=== PATIENT | male | born 1975 | race Caucasian/White ===

== ENCOUNTER 2023-07-19 18:13 | Emergency (ER) | payer OTHER, SELFPAY ==
--- NOTE | ~2023-07-19 | XR_ITS ---
XR chest 2V DATE: 07/19/2023 18:43 INDICATION: Cough for 3 days. Smoker. TECHNIQUE: 2 views COMPARISON: None FINDINGS: Normal heart size. No hilar or mediastinal enlargement is evident. Mild aortic unfolding. No pulmonary infiltrate or consolidation, pleural effusion or pulmonary vascular congestion or pneumo thorax is detected. Degenerative spurring of the thoracic spine. IMPRESSION: No active cardiopulmonary disease Reviewed, dictated and finalized at location A.
--- NOTE | 2023-07-19 18:20 | ED.URI ---
HPI - URI/Sore Throat General Chief Complaint: Upper Respiratory Infection Stated Complaint: cough Time Seen by Provider: 07/19/23 18:20 Source: patient Mode of arrival: ambulatory Limitations: no limitations History of Present Illness HPI Narrative: Patient is a 39-year-old male who presents with 3 days of chest congestion and cough. Patient has taken NyQuil but nothing during the day. Denies taking any allergy medicine or cough medicine. Patient denies any sick contacts. Denies any fever, chills, nausea, vomiting, diarrhea having ear pain, sore throat. Patient does smoke a pack cigarettes a week. Any history of asthma, COPD, bronchitis, pneumonia. Related Data Allergies Allergy/AdvReac Type Severity Reaction Status Date / Time No Known Allergies Allergy Verified 07/19/23 18:30 Review of Systems Review of Systems: All systems reviewed & are unremarkable except as noted in HPI and below Constitutional: Constitutional: Denies body ache(s), Denies chills, Denies fatigue, Denies fever(s), Denies headache(s), Denies malaise and Denies weakness Eyes: Eyes: Denies blurry vision, Denies itchy eyes and Denies loss of vision ENT: Denies otalgia, Denies headache(s), Denies nasal congestion, Denies sinus pain and Denies sore throat Cardiovascular: Cardiovascular: Denies chest pain, Denies irregular heart rhythm and Denies dyspnea Respiratory: Respiratory: Reports chest congestion, Reports cough and Denies dyspnea Gastrointestinal: Gastrointestinal: Denies abdominal pain, Denies diarrhea, Denies nausea and Denies vomiting Musculoskeletal: Musculoskeletal: Denies back pain, Denies myalgias and Denies arthralgias Integumentary/Breasts: Skin/Breast: Denies pruritus and Denies rash Neurologic: Denies headache(s), Denies loss of vision and Denies weakness Psychiatric: Psychiatric: Reports no additional psychiatric complaints Endocrine: Endocrine: Denies fatigue Allergic/Immunologic: Allergic/Immunologic: Denies itchy eyes PMFSH Comments At time of signature, agree with nursing past medical, surgical, social and family history. There is no relevant family history pertinent to the presenting complaint. Exam Const: General: cooperative, healthy appearing, comfortable, no acute distress and well nourished Nutritional Appearance: well nourished Orientation/consciousness: patient oriented x3 Limitations: no limitations HENMT: Head: normal to inspection, normocephalic and atraumatic Ears: hearing grossly normal bilaterally, external ears normal, TM's normal bilaterally, EAC's normal and no periauricular adenopathy Face/Nose/Sinus: Normal external nose present, Abnormal mucous membranes and turbinates present erythematous bilateral and diffuse, normal facial exam, sinuses nontender and face symmetric Face and sinus: normal facial exam, sinuses nontender and face symmetric Mouth: Yes Normal oral and palatal mucosa present, Yes lip normal, Yes tongue normal, Yes Normal salivary glands and ducts present, Yes oropharynx normal and Yes moist mucous membranes Teeth and gingiva: dentition normal Throat: posterior oropharynx normal, tonsils normal and uvula midline Eyes: General: appearance normal, both eyes and all related structures Alignment and Position: alignment normal and position normal Periorbital: periorbital findings normal Eyelids: eyelids normal Pupils: Equal, round and reactive pupils present Neck: Neck: normal visual inspection, full ROM, no lymphadenopathy and supple Chest: Chest palpation & inspection: normal inspection of the chest and normal palpation of entire chest wall Resp: Effort & Inspection: normal respiratory effort and able to speak in complete sentences Auscultation: no crackles, no rales, rhonchi throughout and no wheezes Cardio: Rate: tachycardic Rhythm: regular rhythm Heart sounds: S1 normal heart sound present and S2 normal heart sound present GI: Inspection: normal to inspection Skin: General sk
[2023-07-19 18:29] VITALS: BP 161/91; PULSE 101; RESP 20; TEMP 36.2; O2SAT 97
[2023-07-19 18:30] VITALS: BP 161/91; PULSE 101; RESP 20; TEMP 36.2; O2SAT 97
== END 2023-07-19 19:05 | disposition home or self-care (01) ==
PROVIDERS: Emergency Provider Nurse Practitioner Family
DX: J20.9 Acute bronchitis, unspecified (principal); F17.210 Nicotine dependence, cigarettes, uncomplicated
CPT/HCPCS: 71046; 99213; G0463

== ENCOUNTER 2024-06-13 00:39 | Emergency (ER) | payer OTHER, SELFPAY ==
--- NOTE | ~2024-06-13 | XR_ITS ---
EXAMINATION: XR chest 2V DATE: 06/13/2024 01:58 INDICATION: Shortness of breath. TECHNIQUE: Frontal and lateral views of the chest were obtained. COMPARISON: Chest 2 views 07/19/2023 FINDINGS: There is no pneumonia, pleural effusion, or pneumothorax. The heart size is normal. There a re prominent pericardial fat pads. IMPRESSION: 1. No acute cardiopulmonary disease. Reviewed, dictated and finalized at location A. [employer]
--- OUTSIDE RECORDS SUMMARY | 2024-06-13 00:41 | XMS_ITS | Patient Health Summary ---
Author Organization [facility] Address [address] [place] [address] Care Team Providers Care Night Time Babysitter Name Role Phone Lilly Barragan MD Primary Care Provider [phone] Note from [facility],non-owned Affiliates and Associated Physician Practices is amultiple site organization consisting of ambulatory clinics and hospital sitesin [place] and [place]. This disclosure is being madepursuant to the Care Everywhere program and may not contain all information available regarding this patient. Last updated 17.[facility] Active Problems Problem Noted Date Diagnosed Date Other specified diseases of liver 09/28/2015 Acute kidney failure 09/27/2015 Syncope and collapse 09/26/2015 Social History Tobacco Use Types Packs/Day Years Used Date Smoking Tobacco: Every Day Cigarettes Alcohol Use Standard Drinks/Week Comments Yes 0.8 (1 standard drink = 0.6 oz p ure alcohol) Sex and Gender Information Value Date Recorded Sex Assigned at Not on file Gender Identity Not on file Sexual Orientation Not on file Last Filed Vital Signs Vital Sign Reading Time Taken Comments Blood Pressure 158/86 09/27/2015 4:13 PM CDT Pulse 91 09/27/2015 4:13 PM CDT Temperature 36.9 C (98.4 F) 09/27/2015 4:13 PM CDT Respiratory Rate 18 09/27/2015 4:13 PM CDT Oxygen Saturation 98% 09/27/2015 4:13 PM CDT Inhaled Oxygen Concentration - - Weight 135.4 kg (298 lb 9.6 oz) 016 11:11 PM CDT Height 185.4 cm (6' 1 ) 09/26/2015 11:1 1 PM CDT Body Mass Index 39.4 09/26/2015 11:11 PM CDT Procedures * HEMOGLOBIN A1C(Performed 09/27/2015) * CK + CKMB PANEL(Performed 09/27/2015) * PHOSPHORUS BLOOD(Performed 09/27/2015) * MAGNESIUM BLOOD(Performed 09/27/2015) * PT-INR [facility](Performed 09/27/2015) * UREA NITROGEN URINE RANDOM(Performed 09/27/2015) * SODIUM URINE RANDOM(Performed 09/27/2015) * TSH(Performed 09/27/2015) * LIPID PROFILE(Performed 09/27/2015) * TROPONIN I(Performed 09/27/2015) * CBC W AUTO DIFFERENTIAL(Performed 09/27/2015) * CBC W AUTO DIFFERENTIAL(Performed 09/27/2015) * COMPREHENSIVE METABOLIC PANEL(Performed 09/27/2015) * ECHO STRESS W EXERCISE(Performed 09/27/2015) * ECHO STRESS COLOR FLOW AND DOPPLER(Performed 09/27/2015) * BASIC METABOLIC PANEL (CALCIUM TOTAL)(Performed 09/26/2015) * XR CHEST 1VW PORTABLE(Performed 09/26/2015) * CK + CKMB PANEL(Performed 09/26/2015) * TROPONIN I(Performed 09/26/2015) * COMPREHENSIVE METABOLIC PANEL(Performed 09/26/2015) * CBC W AUTO DIFFERENTIAL(Performed 09/26/2015) * CBC W AUTO DIFFERENTIAL(Performed 09/26/2015) * EKG 12-LEAD(Performed 09/26/2015) * CULTURE STREP GROUP A(Performed 08/05/2013) Results * PT-INR [facility] (09/27/2015 10:20 AM CDT) PT 13.1 12.1 - 14.8 Seconds [facility] INR 1.0 See Comment [facility] Comment: Suggested therapeutic range for low-intensity coumadin therapy for venous thromboembolism prophylaxis is an INR of 2.0-3.0. For high risk patients (Mitral Valve Prosthesis, Atrial Fibrillation, history of TIA/stroke), suggested prophylactic therapeutic range is an INR of 2.5-3.5. Blood specimen (specimen) BLOOD SPECIMEN / Unknown 09/27/2015 10:20 AM CDT 09/27/2015 10:41 AM CDT Narrative [facility] - 09/27/2015 10:59 AM CDT Is patient on Heparin, Argatroban or Dabigatran?->N Don Tolentino MD LAB - COAGULATION ORDERABLES [address] [phone] * HEMOGLOBIN A1C (09/27/2015 10:20 AM CDT) Hemoglobin A1c 5.3 4.4 - 6.3 % [facility] Estimated Average Glucose 105 mg/dL [facility] Comment: HbA1c Interpretation: Treatment target values recommended by ADA and other clinical organizations should be used to evaluate metabolic control in patients. Treatment Target Values: Normal : < 5.7% Pre-diabetes: 5.7-6.4% Diabetes: Equal to or greater than 6.5% Reference: [place] [employer] Standards of Care in Diabetes -2014 In patients 70 years and older consider HbA1c target range of 7.0-7.5% Reference: Diabetes Mellitus in Older People: Position Statement on behalf of the International Association of Gerontology and Geriatrics (IAGG), the Diabetes Working Libertarian for Older People (EDWPOP), and the International Task Force of Experts in Diabetes. Russel Gresham et al. J [place] [employer]. 2012 Test results diagnostic of diabetes should be repeated for confirmation. The Tosoh G8 assay for the measurement of HbA1c is a National Glycohemoglobin Standardization Program (NGSP)certified method. Results for patients with HbE disease should be interpreted with caution as this hemoglobinopathy has been shown to interfere with the Tosoh G8 assay. Blood specimen (specimen) BLOOD SPECIMEN / Unknown 09/27/2015 10:20 AM CDT 09/27/2015 10:41 AM CDT Don Tolentino MD LAB - CHEMISTRY OR DERABLES [address] [phone] * PHOSPHORUS BLOOD (09/27/2015 10:20 AM CDT) Phosphorus 2.3 2.3 - 4.7 mg/dL [facility] Blood specimen (specimen) BLOOD SPECIMEN / Unknown 09/27/2015 10:20 AM CDT 09/27/2015 10:41 AM CDT Don Tolentino MD LAB - CHEMISTRY OR DERABLES Performing Organization Address City/[facility]/ZIP Co de Phone Number [address] [phone] * MAGNESIUM BLOOD (09/27/2015 10:20 AM CDT) Magnesium 2.2 1.6 - 2.6 mg/dL [facility] Blood specimen (specimen) BLOOD SPECIMEN / Unknown 09/27/2015 10:20 AM CDT 09/27/2015 10:41 AM CDT Don Tolentino MD LAB - CHEMISTRY OR DERABLES Performing Organization Address [facility] Co de Phone Number [address] [phone] * CK + CKMB PANEL (09/27/2015 10:20 AM CDT) Only the most recent of2 resultswithin the time period is included. CK Total 97 30 - 200 Units/L [facility] CK-MB 0.6 0.0 - 6.6 ng/mL [facility] Blood specimen (specimen) BLOOD SPECIMEN / Unknown 09/27/2015 10:20 AM CDT 09/27/2015 10:41 AM CDT Don Tolentino MD LAB - CHEMISTRY OR DERABLES Performing Organization Address [facility] Co de Phone Number [address] [phone] * SODIUM URINE RANDOM (09/27/2015 8:30 AM CDT) Sodium Urine 75 Not Established mmol/L [facility] Urine specimen (specimen) URINE / Unknown 09/27/2015 8:30 AM CDT 09/27/2015 10:45 AM CDT Don Tolentino MD LAB - URINE CHEMIS TRY ORDERABLES [address] [phone] * UREA NITROGEN URINE RANDOM (09/27/2015 8:30 AM CDT) Urea Nitrogen Random Urine 467 Not Established mg/dL [facility] Urine specimen (specimen) URINE / Unknown 09/27/2015 8:30 AM CDT 09/27/2015 10:45 AM CDT Don Tolentino MD LAB - URINE CHEMIS TRY ORDERABLES Performing Organization Address [facility] Co de Phone Number [address] [phone] * TROPONIN I (09/27/2015 6:32 AM CDT) Only the most recent of2 resultswithin the time period is included. Troponin I <0.010 <0.032 ng/mL [facility] Blood specimen (specimen) BLOOD SPECIMEN / Unknown 09/27/2015 6:32 AM CDT 09/27/2015 8:00 AM CDT Don Tolentino MD LAB - CHEMISTRY OR DERABLES Performing Organization Address [facility] Co de Phone Number [address] [phone] * CBC W AUTO DIFFERENTIAL (09/27/2015 6:32 AM CDT) Only the most recent of4 resultswithin the time period is included. Blood specimen (specimen) BLOOD SPECIMEN / Unknown 09/27/2015 6:32 AM CDT Narrative [facility] - 09/27/2015 8:01 AM CDT The following orders were created for panel order CBC w Differential. Procedure Abnormality Status --------- ------ CBC WITH DIFFERENTIAL[[id number]] Normal Final result Please view results for these tests on the individual orders. Don Tolentino MD LAB - HEMATOLOGY O RDERABLES Performing Organization Address City/[facility]/ZIP Co de Phone Number [facility] [address] * (ABNORMAL) COMPREHENSIVE METABOLIC PANEL (09/27/2015 6:32 AM CDT) Only the most recent of2 resultswithin the time period is included. BUN 11 7 - 26 mg/dL [facility] Creatinine 1.2 0.6 - 1.2 mg/dL [facility] Sodium 141 136 - 145 mmol/L [facility] Potassium 3.9 3.5 - 4.5 mmol/L [facility] Chloride 109(H) 98 - 107 mmol/L [facility] CO2 23 22 - 29 mmol/L [facility] Glucose 100 70 - 115 mg/dL [facility] Calcium 8.3(L) 8.4 - 10.2 mg/dL [facility] Protein Total 6.3 6.0 - 8.3 g/dL [facility] Albumin 3.3(L) 3.4 - 5.0 g/dL [facility] Bilirubin Total 0.5 0.2 - 1.2 mg/dL [facility] Alkaline Phosphatase 59 40 - 150 Units/L [facility] ALT 14 0 - 55 Units/L [facility] AST 12 5 - 34 Units/L [facility] Anion Gap 13 8 - 18 [facility] BUN/Creatinine Ratio 9 7 - 23 [facility] Osmolality Calculated 291 270 - 300 mOsm/kg [facility] Albumin/Globulin Ratio 1.1 1.1 - 2.3 [facility] eGFR >60 >60 mL/min/1.7 3 m2 [facility] Blood specimen (specimen) BLOOD SPECIMEN / Unknown 09/27/2015 6:32 AM CDT 09/27/2015 7:23 AM CDT Don Tolentino MD LAB - CHEMISTRY OR DERABLES Performing Organization Address City/[facility]/ZIP Co de Phone Number [facility] [address] [phone] * TSH (09/27/2015 6:32 AM CDT) TSH 0.928 0.350 - 4.940 uIU/mL [facility] Blood specimen (specimen) BLOOD SPECIMEN / Unknown 09/27/2015 6:32 AM CDT 09/27/2015 10:32 AM CDT Don Tolentino MD LAB - CHEMISTRY OR DERABLES [address] [phone] * (ABNORMAL) LIPID PROFILE (09/27/2015 6:32 AM CDT) Cholesterol Total 179 <200 mg/dL [facility] HDL 40(L) >40 mg/dL [facility] Comment: ATP III Classification of HDL Cholesterol: <40 mg/dL: Considered a major risk factor. >60 mg/dL: Considered a negative risk factor. LDL Calculated 114(H) <100 mg/dL [facility] Comment: ATP III Classification of LDL Cholesterol: <100 mg/dL: Optimal 100 - 129 mg/dL: Near Optimal/Above Optimal 130 - 159 mg/dL: Borderline High 160 - 189 mg/dL: High >190 mg/dL: Very High Triglycerides 124 <150 mg/dL [facility] Comment: ATP III Classification of Triglycerides: <150 mg/dL: Normal 150 - 199 mg/dL: Borderline High 200 - 400 mg/dL: High >500 mg/dL: Very High Blood specimen (specimen) BLOOD SPECIMEN / Unknown 09/27/2015 6:32 AM CDT 09/27/2015 10:32 AM CDT Don Tolentino MD LAB - CHEMISTRY OR DERABLES [address] [phone] * ECHO STRESS TEST W EXERCISE (09/27/2015 12:00 AM CDT) Anatomical Region Laterality Modality Other 09/27/2015 Don Tolentino MD ECHOCARDIOGRAPHY R ADIANT * ECHO STRESS COLOR FLOW AND DOPPLER (09/27/2015 12:00 AM CDT) Anatomical Region Laterality Modality Other 09/27/2015 Don Tolentino MD ECHOCARDIOGRAPHY R ADIANT * (ABNORMAL) BASIC METABOLIC PANEL (CALCIUM TOTAL) (09/26/2015 9:35 PM CDT) BUN 12 7 - 26 mg/dL [facility] Creatinine 1.6(H) 0.6 - 1.2 mg/dL [facility] Sodium 140 136 - 145 mmol/L [facility] Potassium 4.7(H) 3.5 - 4.5 mmol/L [facility] Chloride 109(H) 98 - 107 mmol/L [facility] CO2 22 22 - 29 mmol/L [facility] Glucose 100 70 - 115 mg/dL [facility] Calcium 8.2(L) 8.4 - 10.2 mg/dL [facility] Anion Gap 14 8 - 18 [facility] BUN/Creatinine Ratio 8 7 - 23 [facility] Osmolality Calculated 290 270 - 300 mOsm/kg [facility] eGFR 48(L) >60 mL/min/1.7 3 m2 [facility] Blood specimen (specimen) BLOOD SPECIMEN / Unknown 09/26/2015 9:35 PM CDT 09/26/2015 9:42 PM CDT Ban Chaudhry MD LAB - CHEMISTRY [facility] ANN GARC[facility] Organization Address City/State/ZIP Co de Phone Number [address] [phone] * XR CHEST 1VW PORTABLE (09/26/2015 7:44 PM CDT) Anatomical Region Laterality Modality Chest Other Impressions 09/27/2015 9:57 AM CDT IMPRESSION: No acute pulmonary process. Dictated by Yuan Milner MD (presidential helicopter crew chief). This report was approved by Yuan Milner on 09/27/2015 8:[address] MASOUD Caldwell MD have personally reviewed and interpreted this examination/study. This report was electronically signed by Dr. MASOUD ROPER MD on 09/27/2015 9:57 AM . Narrative 09/27/2015 9:57 AM CDT EXAMINATION: Chest, AP portable view HISTORY: Syncope. COMPARISON: No prior study is available for comparison. FINDINGS: The lungs are clear. There is no focal consolidation, pleural effusion, or pneumothorax. The cardiomediastinal silhouette is normal. The visible osseous structures are intact. Procedure Note Masoud Roper MD - 07/06/2017 EXAMINATION: Chest, AP portable view HISTORY: Syncope. COMPARISON: No prior study is available for comparison. FINDINGS: The lungs are clear. There is no focal consolidation, pleural effusion, orpneumothorax. The cardiomediastinal silhouette is normal. The visibleosseous structures are intact. IMPRESSION IMPRESSION: No acute pulmonary process. Dictated by Yuan Milner MD (presidential helicopter crew chief). This report was approved by Yuan Milner on 09/27/2015 8:[address] MASOUD Caldwell MD have personally reviewed and interpreted thisexamination/study. This report was electronically signed by Dr. MASOUD ROPER MD on09/27/2015 9:57 AM . Ban Chaudhry MD DIAGNOSTIC IMAGING O RDERABLES * EKG 12-LEAD (09/26/2015 12:00 AM CDT) [facility] EKG [facility] Comment: Exam Date/Time: Sep 26 2015 19:45:25 Test Reason : syncope Blood Pressure : / mmHG Vent. Rate : 095 BPM Atrial Rate : 095 BPM P-R Int : 156 ms QRS Dur : 098 ms QT Int : 376 ms P-R-T Axes : 054 002 022 degrees QTc Int : 472 ms Normal sinus rhythm Prolonged QT Abnormal ECG No previous ECGs available Confirmed by Anayeli Cruz, Rachel ([id number]), editor managing director YUMIKO PAIZ ([id number]) on 10/04/2015 6:01:03 PM Referred By: Confirmed By:Rachel Cruz M.D. 09/26/2015 Ban Chaudhry MD ECG ORDERABLES [facility] * CULTURE STREP GROUP A (08/05/2013 1:40 PM CDT) Culture Beta Strep No Growth of Groups A, C or G Beta Streptococc us. [facility] Throat swab (specimen) ENTIRE THROAT (SURFACE REGION OF NECK) / Unknown 08/05/2013 1:40 PM CDT 08/05/2013 9:10 PM CDT Narrative [facility] - 08/07/2013 12:12 PM CDT AndersonSpecimen#[id number] Giuseppe Loc/Rm/Bed: EXPCARE G// Historical Provider LAB - MICROBIOLOG Y ORDERABLES [facility] [address] [place] [address] Care Teams Night Time Babysitter Relationship Specialty Start Date End Date Lilly Barragan MD [address] [place] [address] [place] [address] PCP - General 09/26/15
--- OUTSIDE RECORDS SUMMARY | 2024-06-13 00:41 | XMS_ITS | Referral Summary ---
Author Organization [facility] Address [address] [place] [address] Care Team Providers Care Acid Regenerator Name Role Phone Lilly Barragan MD Primary Care Provider [phone] Source Comments [facility],non-owned Affiliates and Associated Physician Practices is amultiple site organization consisting of ambulatory clinics and hospital sitesin [place], [place], [place] and [place]. This disclosure is being madepursuant to the Care Everywhere program and may not contain all information available regarding this patient. Last updated 17.[facility] Active Problems Problem Noted Date Diagnosed Date Other specified diseases of liver 09/28/2015 Overview (07/08/2017): Incidental finding on stress ECHO Acute kidney failure 09/27/2015 Syncope and collapse [...] Mass Index 39.4 09/26/2015 11:11 PM CDT Plan of Treatment Not on file Procedures Procedure Name Priority Date/Time Associated Diagnosis Comments LIPID PROFILE LIDIA 09/27/2015 6:32 AM CDT from Last 3 Months or Most Recently Relevant to Health Maintenance Results * (ABNORMAL) LIPID PROFILE (09/27/2015 6:32 AM CDT) Cholesterol Total 179 <200 mg/dL [facility] HDL 40(L) >40 mg/dL [facility] Comment: ATP III Classification of HDL Cholesterol: <40 mg/dL: Considered a major risk factor. >60 mg/dL: Considered a negative risk factor. LDL Calculated 114(H) <100 mg/dL [facility] Comment: ATP III Classification of LDL Cholesterol: <100 mg/dL: Optimal 100 - 129 mg/dL: Near Optimal/Above Optimal 130 - 159 mg/dL: Borderline High 160 - 189 mg/dL: High >190 mg/dL: Very High Triglycerides 124 <150 mg/dL [facility] Comment: ATP III Classification of Triglycerides: <150 mg/dL: Normal 150 - 199 mg/dL: Borderline High 200 - 400 mg/dL: High >500 mg/dL: Very High Blood specimen (specimen) BLOOD SPECIMEN / Unknown 09/27/2015 6:32 AM CDT 09/27/2015 10:32 AM CDT Don Tolentino MD LAB - CHEMISTRY OR DERABLES Performing Organization Address City/State/[facility] Co de Phone Number [address] [phone] from Last 3 Months or Most Recently Relevant to Health Maintenance Care Teams Acid Regenerator Relationship Specialty Start Date End Date Lilly Barragan MD [address] [place] [address] [place] [address] PCP - General 09/26/15
--- OUTSIDE RECORDS SUMMARY | 2024-06-13 00:41 | XMS_ITS | Clinical Summary ---
Author Organization [facility] Address [address] [place] [address] Care Team Providers Care Supervisor Dental Laboratory Name Role Phone Lilly Barragan MD Primary Care Provider [phone] Allergies No known active allergies Medications PROAIR HFA 108 (90 Base) MCG/ACT inhaler INL 1 TO 2 PFS PO Q 4 H PRF SOB 0 02/12/2018 Active buPROPion SR (WELLBUTRIN SR) 150 MG 12 hr tabletIndicatio ns:Tobacco abuse Initial dose of 1 tablet (150mg) PO once daily for 3 days, then increase to 1 tablet PO BID. Stop smoking after 7 days of treatment. 60 tablet 3 07/03/2018 Active Active Problems Problem Noted Date Diagnosed Date Cigarette nicotine dependence in remission 07/28 DEJAH on CPAP 07/03/2018 Witnessed episode of apnea 05/29/2018 Snoring 05/29/2018 Class 3 severe obesity due t o excess calories with body mass index (BMI) of 40.0 to 44.9 in adult, unspecified whether serious comorbidity present (CMS/HCC HHS/HCC) 05/29/2018 Chronic GERD 05/29/2018 Tobacco use 05/29/2018 Other specified diseases of liver 09/28/2015 Overview (07/23/2018): Overview: Incidental finding on stress ECHO Acute renal failure 09/27/2015 Syncope and collapse 09/26/2015 Family History Medical History Relation Comments Heart Disease Father Lung Cancer Maternal Grandfather Relation Status Comments Father Maternal Grandfather Social History Tobacco Use Types Packs/Day Years Used Date Smoking Tobacco: Every Day Cigarettes 0.5 20 Smokeless Tobacco: Never Tobacco Cessation:Ready to Q uit: No; Counseling Given: Yes Comments:previously smoked more than 0.25ppd Alcohol Use Standard Drinks/Week Comments No 0 (1 standard drink = 0.6 oz pur e alcohol) AUDIT-C Answer Date Recorded Frequency of Alcohol Consumption Never 07/03/2018 Average Number of Drinks Not on file 019 Frequency of Binge Drinking Not on file 06/07 Sex and Gender Information Value Date Recorded Sex Assigned at Not on file Legal Sex Male 8:03 PM CDT Gender Identity Not on file Sexual Orientation Not on file Last Filed Vital Signs Vital Sign Reading Time Taken Comments Blood Pressure 140/97 07/24/2018 10:52 AM CDT Pulse 92 07/24/2018 10:52 AM CDT Temperature 36.9 C (98.4 F) 07/24/2018 10:52 AM CDT Respiratory Rate 16 07/24/2018 10:52 AM CDT Oxygen Saturation 93% 07/24/2018 10:52 AM CDT rA Inhaled Oxygen Concentration - - Weight 146.1 kg (322 lb) 07/24/2018 10:52 AM CDT Height 182.9 cm (6') 07/03/2018 7:05 AM CDT Body Mass Index 43.67 07/03/2018 7:05 AM CDT Plan of Treatment Health Maintenance Due Date Last Done Comments Colorectal Cancer Screening Colonoscopy (10 Years) 1974 Annual Physical 1977 Pneumococcal Vaccine: Pediat rics (0 to 5 Years) and At-Risk Patients (6 to 64 Years) (1 of 2 - PCV) 1980 Hepatitis C 1992 DTaP, Tdap and Td Vaccines ( 1 - Tdap) 1993 Hepatitis B Vaccines (1 of 3 - 19+ 3-dose series) 1993 COVID-19 Vaccine ( - 2023-2 5 season) 2023 Influenza Adult (#1) 2024 Meningococcal B Vaccine Aged Out No l onger eligible based on patient's age to complete this topic Meningococcal Vaccine Aged Out No rajiv marvin eligible based on patient's age to complete this topic RSV Immunizations Under 20 Months Aged Out No longer eligible based on patient's age to complete this topic Insurance Care Teams Supervisor Dental Laboratory Relationship Specialty Start Date End Date Lilly Barragan MD [address] [place] [address] ,[address] [address] PCP - General INTERNAL MEDICINE 05/29/18
--- OUTSIDE RECORDS SUMMARY | 2024-06-13 00:41 | XMS_ITS | Clinical Summary ---
Author Organization [facility] Address [address] [place] [address] Care Team Providers Care Wireline Field Operator Name Role Phone Lilly Barragan MD Primary Care Provider [phone] Source Comments [facility],non-owned Affiliates and Associated Physician Practices is amultiple site organization consisting of ambulatory clinics and hospital sitesin [place], [place], [place] and [place]. This disclosure is being madepursuant to the Care Everywhere program and may not contain all information available regarding this patient. Last updated 17.[facility] Active Problems Problem Noted Date Diagnosed Date [...] 09/26/2015 11:11 PM CDT Plan of Treatment Health Maintenance Due Date Last Done Comments COLOGUARD (AGES 45-75) - COL ON CA SCREENING 1974 COLON MONITORING 1974 COLONOSCOPY - COLON CA SCREENING 1974 CT COLONOGRAPHY - COLON CA SCREENING 1974 Colorectal Cancer Screening 1974 FIT - COLON CA SCREENING 1974 FLEX SIG - COLON CA SCREENING 1974 HIV SCREENING 1989 HEPATITIS C SCREENING 09/14/1992 DTAP/TDAP/TD VACCINES (1 - Tdap) 1993 HEPATITIS B VACCINE (1 of 3 - 19+ 3-dose series) 1993 PNEUMOCOCCAL VACCINE (1 of 2 - PCV) 1993 LIPID TESTING 09/26/2020 09/27/2015 COVID-19 VACCINE (1 - 2023-2 5 season) 2023 INFLUENZA VACCINE (#1) 2023 DEPRESSION SCREENING 04/08/2024 ZOSTER VACCINE (1 of 2) 2024 HIB VACCINE Aged Out No longer eligi ble based on patient's age to complete this topic HPV VACCINE Aged Out No longer eligi ble based on patient's age to complete this topic MENINGOCOCCAL (Group B) VACCINE Aged Out No longer eligible based on patient's age to complete this topic MENINGOCOCCAL VACCINE Aged Out No rajiv marvin eligible based on patient's age to complete this topic Procedures Procedure Name Priority Date/Time Associated Diagnosis Comments LIPID PROFILE LIDIA 09/27/2015 6:32 AM CDT from Last 3 Months or Most Recently Relevant to Health Maintenance Results * (ABNORMAL) LIPID PROFILE (09/27/2015 6:32 AM CDT) Cholesterol Total 179 <200 mg/dL [facility] HDL 40(L) >40 mg/dL [facility] Comment: ATP III Classification of HDL Cholesterol: <40 mg/dL: Considered a major risk factor. >60 mg/dL: Considered a negative risk factor. LDL Calculated 114(H) <100 mg/dL [facility] Comment: ATP III Classification of LDL Cholesterol: <100 mg/dL: Optimal 100 - 129 mg/dL: Near Optimal/Above Optimal 130 - 159 mg/dL: Borderline High 160 - 189 mg/dL: High >190 mg/dL: Very High Triglycerides 124 <150 mg/dL [facility] Comment: ATP III Classification of Triglycerides: <150 mg/dL: Normal 150 - 199 mg/dL: Borderline High 200 - 400 mg/dL: High >500 mg/dL: Very High Blood specimen (specimen) BLOOD SPECIMEN / Unknown 09/27/2015 6:32 AM CDT 09/27/2015 10:32 AM CDT Don Tolentino MD LAB - CHEMISTRY OR DERABLES [facility] [address] [place] [address] from Last 3 Months or Most Recently Relevant to Health Maintenance Care Teams Wireline Field Operator Relationship Specialty Start Date End Date Lilly Barragan MD [address] [place] [address] PCP - General 09/26/15
[2024-06-13 00:42] VITALS: BP 190/112; PULSE 94; RESP 15; TEMP 36.3; O2SAT 97
--- NOTE | 2024-06-13 00:48 | ECG_ITS ---
Test Date: 2024-06-13 00:52:28 Measurements Intervals [place] Rate: 90 P: 56 [place]: 178 QRS: 3 QRSD: 96 T: 38 QT: 358 QTc: 439 Interpretive Statements SINUS RHYTHM WITHIN NORMAL LIMITS No previous ECG available for comparison Electronically Signed On 06-13-2024 15:53:10 HOUSEKEEPING COORDINATOR by Arsenio Schafer M.D.
[2024-06-13 01:05] LABS: Basophils Percent Auto 0.4 % (0.2-1.2); Eosinophils Absolute Auto 0.3 K/mm3 (0-0.3); Eosinophils Percent Auto 3.6 % (0-4.4); Hematocrit 45.8 % (42.0-52.0); Immature Granulocyte Absolute 0.01 K/mm3 (0.00-0.031); Immature Granulocyte Percent A 0.1 % (0-0.5); Lymphocytes Absolute Auto 2.03 K/mm3 (0.9-3.2); Mean Corpuscular HGB Conc 32.8 g/dl (32-36); Mean Corpuscular Hemoglobin 29.1 pg (26-34); Mean Corpuscular Volume 88.9 fl (80-100); Monocytes Absolute Auto 0.6 K/mm3 (0.1-0.6); Monocytes Percent Auto 8.4 % (2.6-8.5); Neutrophils Absolute Auto 4.5 K/mm3 (1.3-6.7); Neutrophils Percent Auto 60.5 % (45.5-73.1); Platelet Count Result 194 k/mm3 (150-375); Red Blood Count 5.15 M/mm3 (4.6-6.20); Red Cell Distribution Width 14.3 % (11.5-14.5); White Blood Count 7.5 K/mm3 (4.5-10.0)
[2024-06-13 01:17] LABS: Alanine Aminotransferase 26 U/L (6-50); Albumin Level 4.1 g/dL (3.5-5.1); Alkaline Phosphatase 75 U/L (38-126); Anion Gap 11 mmol/L (4-12); Aspartate Amino Transferase 22 U/L (17-59); Bilirubin,Total 0.5 mg/dL (0.2-1.3); Blood Urea Nitrogen 21 mg/dL (9-20); Calcium 8.7 mg/dL (8.4-10.2); Carbon Dioxide 26 mmol/L (22-30); Chloride 106 mmol/L (98-107); Estimated CRCL calculation 126 ml/min; Estimated Glomerular Filt Rate > 60; Glucose 117 mg/dL (65-110); Potassium 4.1 mmol/L (3.4-5.0); Sodium 143 mmol/L (137-145)
[2024-06-13 01:26] LABS: NT Pro B Type Natriuretic Pept 63 pg/mL (19.9-100); Troponin I 0.017 ng/mL (0.000-0.034)
[2024-06-13 01:37] LABS: INR 0.9; Prothrombin Time 12.6 Seconds (11.1-14.7)
[2024-06-13 01:38] LABS: Partial Thromboplastin Time 26.2 Seconds (22.3-36.8)
[2024-06-13 02:13] VITALS: PULSE 93; O2SAT 93
[2024-06-13 02:16] VITALS: BP 149/96; PULSE 92; RESP 18; O2SAT 93
--- OUTSIDE RECORDS SUMMARY | 2024-06-13 04:21 | XMS_ITS | Referral Summary ---
Author Organization [facility] Address [address] [place] [address] Care Team Providers Care Dinking Machine Operator Name Role Phone Lilly Barragan MD Primary Care Provider Source Comments [facility],non-owned Affiliates and Associated Physician Practices is amultiple site organization consisting of ambulatory clinics and hospital sitesin [place], [place], [place] and [place]. This disclosure is being madepursuant to the Care Everywhere program and may not contain all information available regarding this patient. Last updated 17.[facility] Active Problems Problem Noted Date Diagnosed [...] AM CDT) Cholesterol Total 179 <200 mg/dL [facility] HDL 40(L) >40 mg/dL [facility] Comment: ATP III Classification of HDL Cholesterol: <40 mg/dL: Considered a major risk factor. >60 mg/dL: Considered a negative risk factor. LDL Calculated 114(H) <100 mg/dL [facility] Comment: ATP III Classification of LDL Cholesterol: <100 mg/dL: Optimal 100 - 129 mg/dL: Near Optimal/Above Optimal 130 - 159 mg/dL: Borderline High 160 - 189 mg/dL: High >190 mg/dL: Very High Triglycerides 124 <150 mg/dL [facility] Comment: ATP III Classification of Triglycerides: <150 mg/dL: Normal 150 - 199 mg/dL: Borderline High 200 - 400 mg/dL: High >500 mg/dL: Very High Blood specimen (specimen) BLOOD SPECIMEN / Unknown 09/27/2015 6:32 AM CDT 09/27/2015 10:32 AM CDT Don Tolentino MD LAB - CHEMISTRY OR DERABLES Performing Organization Address City/State/[facility] Co de Phone Number [address] [phone] from Last 3 Months or Most Recently Relevant to Health Maintenance Care Teams Dinking Machine Operator Relationship Specialty Start Date End Date Lilly Barragan MD [address] [place] [address] [place] [address] PCP - General 09/26/15
--- OUTSIDE RECORDS SUMMARY | 2024-06-13 04:21 | XMS_ITS | Clinical Summary ---
Author Organization [facility] Address [address] [place] [address] Care Team Providers Care Level Vial Inspector And Tester Name Role Phone Lilly Barragan MD Primary Care Provider [phone] Source Comments [facility],non-owned Affiliates and Associated Physician Practices is amultiple site organization consisting of ambulatory clinics and hospital sitesin [place], [place] and [place]. This disclosure is being madepursuant to the Care Everywhere program and may not contain all information available regarding this patient. Last updated 17.[facility] Active Problems Problem Noted Date Diagnosed [...] AM CDT) Cholesterol Total 179 <200 mg/dL [facility] HDL 40(L) >40 mg/dL [facility] Comment: ATP III Classification of HDL Cholesterol: <40 mg/dL: Considered a major risk factor. >60 mg/dL: Considered a negative risk factor. LDL Calculated 114(H) <100 mg/dL [facility] Comment: ATP III Classification of LDL Cholesterol: <100 mg/dL: Optimal 100 - 129 mg/dL: Near Optimal/Above Optimal 130 - 159 mg/dL: Borderline High 160 - 189 mg/dL: High >190 mg/dL: Very High Triglycerides 124 <150 mg/dL [facility] Comment: ATP III Classification of Triglycerides: <150 mg/dL: Normal 150 - 199 mg/dL: Borderline High 200 - 400 mg/dL: High >500 mg/dL: Very High Blood specimen (specimen) BLOOD SPECIMEN / Unknown 09/27/2015 6:32 AM CDT 09/27/2015 10:32 AM CDT Don Tolentino MD LAB - CHEMISTRY OR DERABLES [facility] [address] [place] [address] from Last 3 Months or Most Recently Relevant to Health Maintenance Care Teams Level Vial Inspector And Tester Relationship Specialty Start Date End Date Lilly Barragan MD [address] [facility] [address] [place] [address] PCP - General 09/26/15
--- OUTSIDE RECORDS SUMMARY | 2024-06-13 04:21 | XMS_ITS | Patient Health Summary ---
Author Organization [facility] Address [address] [place] [address] Care Team Providers Care Shape Carver Name Role Phone Lilly Barragan MD Primary Care Provider [phone] [facility],non-owned Affiliates and Associated Physician Practices is amultiple site organization consisting of ambulatory clinics and hospital sitesin [place], [place], [place] and [place]. This disclosure is being madepursuant to the Care Everywhere program and may not contain all information available regarding this patient. Last updated 17.[facility] Active Problems Problem Noted Date Diagnosed Date [...] 09/27/2015) * MAGNESIUM BLOOD(Performed 09/27/2015) * PT-INR [facility](Performed 09/27/2015) * UREA NITROGEN URINE RANDOM(Performed 09/27/2015) [...] STREP GROUP A(Performed 08/05/2013) Results * PT-INR [facility] (09/27/2015 10:20 AM CDT) PT 13.1 12.1 - 14.8 Seconds [facility] INR 1.0 See Comment [facility] Comment: Suggested therapeutic range for low-intensity coumadin therapy for venous thromboembolism prophylaxis is an INR of 2.0-3.0. For high risk patients (Mitral Valve Prosthesis, Atrial Fibrillation, history of TIA/stroke), suggested prophylactic therapeutic range is an INR of 2.5-3.5. Blood specimen (specimen) BLOOD SPECIMEN / Unknown 09/27/2015 10:20 AM CDT 09/27/2015 10:41 AM CDT Narrative [facility] - 09/27/2015 10:59 AM CDT Is patient on Heparin, Argatroban or Dabigatran?->N Don Tolentino MD LAB - COAGULATION ORDERABLES [address] [phone] * HEMOGLOBIN A1C (09/27/2015 10:20 AM CDT) Hemoglobin A1c 5.3 4.4 - 6.3 % [facility] Estimated Average Glucose 105 mg/dL [facility] Comment: HbA1c Interpretation: Treatment target values recommended by ADA and other clinical organizations should be used to evaluate metabolic control in patients. Treatment Target Values: Normal : < 5.7% Pre-diabetes: 5.7-6.4% Diabetes: Equal to or greater than 6.5% Reference: [place] [employer] Association Standards of Care in Diabetes -2014 In patients 70 years and older consider HbA1c target range of 7.0-7.5% Reference: Diabetes Mellitus in Older People: Position Statement on behalf of the International Association of Gerontology and Geriatrics (IAGG), the Diabetes Working Libertarian for Older People (EDWPOP), and the International Task Force of Experts in Diabetes. Russel Gresham et al. J [employer] Association. 2012 Test results diagnostic [...] Tolentino MD LAB - CHEMISTRY OR DERABLES [address] [phone] * PHOSPHORUS BLOOD (09/27/2015 10:20 AM CDT) Phosphorus 2.3 2.3 - 4.7 mg/dL [facility] Blood specimen (specimen) BLOOD SPECIMEN / Unknown 09/27/2015 10:20 AM CDT 09/27/2015 10:41 AM CDT Don Tolentino MD LAB - CHEMISTRY OR DERABLES Performing Organization Address City/[facility]/ZIP Co de Phone Number [address] [phone] * MAGNESIUM BLOOD (09/27/2015 10:20 AM CDT) Magnesium 2.2 1.6 - 2.6 mg/dL [facility] Blood specimen (specimen) BLOOD SPECIMEN / Unknown 09/27/2015 10:20 AM CDT 09/27/2015 10:41 AM CDT Don Tolentino MD LAB - CHEMISTRY OR DERABLES Performing Organization Address [facility] Co de Phone Number [address] [phone] * CK + CKMB PANEL (09/27/2015 10:20 AM CDT) Only the most recent of2 resultswithin the time period is included. CK Total 97 30 - 200 Units/L [facility] CK-MB 0.6 0.0 - 6.6 ng/mL [facility] Blood specimen (specimen) BLOOD SPECIMEN / Unknown 09/27/2015 10:20 AM CDT 09/27/2015 10:41 AM CDT Don Tolentino MD LAB - CHEMISTRY OR DERABLES Performing Organization Address [facility] [place] Co de Phone Number [address] [phone] * SODIUM URINE RANDOM (09/27/2015 8:30 AM CDT) Sodium Urine 75 Not Established mmol/L [facility] Urine specimen (specimen) URINE / Unknown 09/27/2015 8:30 AM CDT 09/27/2015 10:45 AM CDT Don Tolentino MD LAB - URINE CHEMIS TRY ORDERABLES [address] [phone] * UREA NITROGEN URINE RANDOM (09/27/2015 8:30 AM CDT) Urea Nitrogen Random Urine 467 Not Established mg/dL [facility] Urine specimen (specimen) URINE / Unknown 09/27/2015 8:30 AM CDT 09/27/2015 10:45 AM CDT Don Tolentino MD LAB - URINE CHEMIS TRY ORDERABLES Performing Organization Address [facility] Co de Phone Number [address] [phone] * TROPONIN I (09/27/2015 6:32 AM CDT) Only the most recent of2 resultswithin the time period is included. Troponin I <0.010 <0.032 ng/mL [facility] Blood specimen (specimen) BLOOD SPECIMEN / Unknown 09/27/2015 6:32 AM CDT 09/27/2015 8:00 AM CDT Don Tolentino MD LAB - CHEMISTRY OR DERABLES Performing Organization Address [facility] Co de Phone Number [address] [phone] * CBC W AUTO DIFFERENTIAL (09/27/2015 6:32 AM CDT) Only the most recent of4 resultswithin the time period is included. Blood specimen (specimen) BLOOD SPECIMEN / Unknown 09/27/2015 6:32 AM CDT Narrative [facility] - 09/27/2015 8:01 AM CDT The following orders were created for panel order CBC w Differential. Procedure Abnormality Status --------- ------ CBC WITH DIFFERENTIAL[[id number]] Normal Final result Please view results for these tests on the individual orders. Don Tolentino MD LAB - HEMATOLOGY O RDERABLES Performing Organization Address City/[facility]/ZIP Co de Phone Number [facility] [address] * (ABNORMAL) COMPREHENSIVE METABOLIC PANEL (09/27/2015 6:32 AM CDT) Only the most recent of2 resultswithin the time period is included. BUN 11 7 - 26 mg/dL [facility] Creatinine 1.2 0.6 - 1.2 mg/dL [facility] Sodium 141 136 - 145 mmol/L [facility] Potassium 3.9 3.5 - 4.5 mmol/L [facility] Chloride 109(H) 98 - 107 mmol/L [facility] CO2 23 22 - 29 mmol/L [facility] Glucose 100 70 - 115 mg/dL [facility] Calcium 8.3(L) 8.4 - 10.2 mg/dL [facility] Protein Total 6.3 6.0 - 8.3 g/dL [facility] Albumin 3.3(L) 3.4 - 5.0 g/dL [facility] Bilirubin Total 0.5 0.2 - 1.2 mg/dL [facility] Alkaline Phosphatase 59 40 - 150 Units/L [facility] ALT 14 0 - 55 Units/L [facility] AST 12 5 - 34 Units/L [facility] Anion Gap 13 8 - 18 [facility] BUN/Creatinine Ratio 9 7 - 23 [facility] Osmolality Calculated 291 270 - 300 mOsm/kg [facility] Albumin/Globulin Ratio 1.1 1.1 - 2.3 [facility] eGFR >60 >60 mL/min/1.7 3 m2 [facility] Blood specimen (specimen) BLOOD SPECIMEN / Unknown 09/27/2015 6:32 AM CDT 09/27/2015 7:23 AM CDT Don Tolentino MD LAB - CHEMISTRY OR DERABLES Performing Organization Address City/[facility]/ZIP Co de Phone Number [facility] [address] [phone] * TSH (09/27/2015 6:32 AM CDT) TSH 0.928 0.350 - 4.940 uIU/mL [facility] Blood specimen (specimen) BLOOD SPECIMEN / Unknown 09/27/2015 6:32 AM CDT 09/27/2015 10:32 AM CDT Don Tolentino MD LAB - CHEMISTRY OR DERABLES [address] [phone] * (ABNORMAL) LIPID PROFILE (09/27/2015 6:32 AM CDT) Cholesterol Total 179 <200 mg/dL [facility] HDL 40(L) >40 mg/dL [facility] Comment: ATP III Classification of HDL [...] Tolentino MD LAB - CHEMISTRY OR DERABLES [address] [phone] * ECHO STRESS TEST W EXERCISE (09/27/2015 12:00 AM CDT) Anatomical Region Laterality Modality Other 09/27/2015 Don Tolenitno MD ECHOCARDIOGRAPHY R ADIANT * ECHO STRESS COLOR FLOW AND DOPPLER (09/27/2015 12:00 AM CDT) Anatomical Region Laterality Modality Other 09/27/2015 Don Tolentino MD ECHOCARDIOGRAPHY R ADIANT * (ABNORMAL) BASIC METABOLIC PANEL (CALCIUM TOTAL) (09/26/2015 9:35 PM CDT) BUN 12 7 - 26 mg/dL [facility] Creatinine 1.6(H) 0.6 - 1.2 mg/dL [facility] Sodium 140 136 - 145 mmol/L [facility] Potassium 4.7(H) 3.5 - 4.5 mmol/L [facility] Chloride 109(H) 98 - 107 mmol/L [facility] CO2 22 22 - 29 mmol/L [facility] Glucose 100 70 - 115 mg/dL [facility] Calcium 8.2(L) 8.4 - 10.2 mg/dL [facility] Anion Gap 14 8 - 18 [facility] BUN/Creatinine Ratio 8 7 - 23 [facility] Osmolality Calculated 290 270 - 300 mOsm/kg [facility] eGFR 48(L) >60 mL/min/1.7 3 m2 [facility] Blood specimen (specimen) BLOOD SPECIMEN / Unknown 09/26/2015 9:35 PM CDT 09/26/2015 9:42 PM CDT Ban Chaudhry MD LAB - CHEMISTRY [facility] Organization Address City/State/ZIP Co de Phone Number [address] [phone] * XR CHEST 1VW PORTABLE (09/26/2015 7:44 PM CDT) Anatomical Region Laterality Modality Chest Other Impressions 09/27/2015 9:57 AM CDT IMPRESSION: No acute pulmonary process. Dictated by Yuan Milner MD (resident care associate). This report was approved by Yuan Milner [...] pulmonary process. Dictated by Yuan Milner MD (resident care associate). This report was approved by Yuan Milner on 09/27/2015 8:[address] MASOUD Caldwell MD have personally reviewed and interpreted thisexamination/study. This report was electronically signed by Dr. MASOUD ROPER MD on09/27/2015 9:57 AM . Ban Chaudhry MD DIAGNOSTIC IMAGING O RDERABLES * EKG 12-LEAD (09/26/2015 12:00 AM CDT) [facility] EKG [facility] Comment: Exam Date/Time: Sep 26 2015 [...] ECGs available Confirmed by Anayeli Cruz, Rachel ([id number]), school photograph editor YUMIKO PAIZ ([id number]) on 10/04/2015 6:01:03 PM Referred By: Confirmed By:Rachel Cruz M.D. 09/26/2015 Ban Chaudhry MD ECG ORDERABLES [facility] * CULTURE STREP GROUP A (08/05/2013 1:40 PM CDT) Culture Beta Strep No Growth of Groups A, C or G Beta Streptococc us. [facility] Throat swab (specimen) ENTIRE THROAT (SURFACE REGION OF NECK) / Unknown 08/05/2013 1:40 PM CDT 08/05/2013 9:10 PM CDT Narrative [facility] - 08/07/2013 12:12 PM CDT AndersonSpecimen#[id number] Giuseppe Loc/Rm/Bed: EXPCARE G// Historical Provider LAB - MICROBIOLOG Y ORDERABLES [facility] [address] [place] [address] Care Teams Shape Carver Relationship Specialty Start Date End Date Lilly Barragan MD [address] [place] [address] [place] [address] PCP - General 09/26/15
--- OUTSIDE RECORDS SUMMARY | 2024-06-13 04:21 | XMS_ITS | Clinical Summary ---
Author Organization [facility] Address [address] [place] [address] Care Team Providers Care Clinical Psychologist Licensed Name Role Phone Lilly Barragan MD Primary Care Provider [phone] Allergies No known active allergies Medications PROAIR [...] in adult, unspecified whether serious comorbidity present 05/29/2018 Chronic GERD 05/29/2018 Tobacco use 05/29/2018 [...] to complete this topic Insurance Care Teams Clinical Psychologist Licensed Relationship Specialty Start Date End Date Lilly Barragan MD [address] [place] [address] ,[address] [address] PCP - General INTERNAL MEDICINE 05/29/18
[2024-06-13 04:23] VITALS: BP 147/78; PULSE 87; RESP 18; O2SAT 95
--- NOTE | 2024-06-13 04:59 | ED_ITS ---
HPI - General Adult General Chief complaint: Shortness of Breath/Dyspnea Stated complaint: edema/SOB/HTN Time Seen by Provider: 06/13/24 04:15 History of Present Illness HPI narrative: Patient 38-year-old gentleman presents emergency department with chief complaint of shortness of breath with exertion hypertension and peripheral edema. Patient reports this been ongoing for some time reports that he talk to his primary care provider told him to come to the emergency department for evaluation. Patient reports currently chest pain in patient reports that he has no prior history of cardiac disease reports that he has been actively trying to lose weight Related Data Allergies Allergy/AdvReac Type Severity Reaction Status Date / Time No Known Allergies Allergy Verified 06/13/24 00:40 Review of Systems 2 Review of Systems: A 10 system review of systems was completed on the patient and is negative except for what is stated in the HPI. Nursing and ancillary documentation was reviewed. [facility] Family History Family History Father Diabetes mellitus Hypertension Sibling Diabetes mellitus Hypertension Grandparent Diabetes mellitus Hypertension Grandparent Diabetes mellitus Hypertension Social History Social History Smoking status: Current every day smoker Exam 2 Narrative: GENERAL: Well-appearing, well-nourished, and in no acute distress. Morbidly obese HEAD: Normocephalic, atraumatic. EYES: PERRLA and EOMI. ENT: Nares clear, no rhinorrhea or epistaxis. Mucous membranes moist. NECK: Supple. CHEST: Clear to auscultation. No respiratory distress. HEART: Regular rate and rhythm. No murmur heard. Normal peripheral pulses. ABDOMEN: Soft, nontender, nondistended, normal active bowel sounds. EXTREMITIES: Normal range of motion. Trace edema. SKIN: Warm, dry, no rash. NEURO: No focal deficits. Alert and oriented x3. PSYCH: Normal mood and affect. Course Vital Signs Vital signs: Vital Signs Temperature 36.3 C L 06/13/24 00:42 Pulse Rate 94 06/13/24 00:42 Respiratory Rate 15 06/13/24 00:42 Blood Pressure 190/112 H 06/13/24 00:42 Pulse Oximetry 97 06/13/24 00:42 Oxygen Delivery Room Air 06/13/24 00:42 Temperature 36.3 C L 06/13/24 00:42 Pulse Rate 87 06/13/24 04:23 Respiratory Rate 18 06/13/24 04:23 Blood Pressure 147/78 H 06/13/24 04:23 Pulse Oximetry 95 06/13/24 04:23 Oxygen Delivery Room Air 06/13/24 02:13 Medical Decision Making MDM Narrative Medical decision making narrative: Differential diagnosis includes peripheral edema, obstructive sleep apnea, CHF Laboratory studies were obtained on the patient showed normal CBC CMP was within normal limits renal function was normal troponin was negative and repeat troponin was negative chest x-ray showed no heart failure EKG showed no acute ischemic changes Patient will be started on low-dose diuretic lb instructed to follow-up with his primary care provider for further outpatient workup Vital Signs Vital Signs: Vital Signs Temperature 36.3 C L 06/13/24 00:42 Pulse Rate 94 06/13/24 00:42 Respiratory Rate 15 06/13/24 00:42 Blood Pressure 190/112 H 06/13/24 00:42 Pulse Oximetry 97 06/13/24 00:42 Oxygen Delivery Room Air 06/13/24 00:42 Temperature 36.3 C L 06/13/24 00:42 Pulse Rate 87 06/13/24 04:23 Respiratory Rate 18 06/13/24 04:23 Blood Pressure 147/78 H 06/13/24 04:23 Pulse Oximetry 95 06/13/24 04:23 Oxygen Delivery Room Air 06/13/24 02:13 Lab Data 06/13/24 00:58 06/13/24 00:58 Labs: Lab Results 06/13/24 06/13/24 Range/Units 00:58 04:49 WBC 7.5 (4.5-10.0) K/mm3 RBC 5.15 (4.6-6.20) M/mm3 Hgb 15.0 (14.0-18.0) g/dL Hct 45.8 (42.0-52.0) % MCV 88.9 (80-100) fl MCH 29.1 (26-34) pg MCHC 32.8 (32-36) g/dl RDW 14.3 (11.5-14.5) % Plt Count 194 (150-375) k/mm3 MPV 12.0 H (7.4-10.4) fl Immature Gran % (Auto) 0.1 (0-0.5) % Neut % (Auto) 60.5 (45.5-73.1) % Lymph % (Auto) 27.0 (18.3-44.2) % [place] % (Auto) 8.4 (2.6-8.5) % Eos % (Auto) 3.6 (0-4.4) % Baso % (Auto) 0.4 (0.2-1.2) % Lymph # (Auto) 2.03 (0.9-3.2) K/mm3 [place] # (Auto) 0.6 (0.1-0.6) K/mm3 Eos # (Auto) 0.3 (0-0.3) K/mm3 Baso # (Auto) 0.0 (0.0-0.1) K/mm3 Abs Immat Gran (auto) 0.01 (0.00-0.031) K/mm3 Absolute Neuts (auto) 4.5 (1.3-6.7) K/mm3 Absolute Nucleated RBC 0.000 (0.0-0.012) K/mm3 Nucleated RBC % 0.0 (0.0-0.2) % PT 12.6 (11.1-14.7) Seconds INR 0.9 APTT 26.2 (22.3-36.8) Seconds Sodium 143 (137-145) mmol/L Potassium 4.1 (3.4-5.0) mmol/L Chloride 106 (98-107) mmol/L Carbon Dioxide 26 (22-30) mmol/L Anion Gap 11 (4-12) mmol/L BUN 21 H (9-20) mg/dL Creatinine 1.08 (0.7-1.3) mg/dL Estim Creat Clear Calc 126 ml/min Estimated GFR > 60 (59 - ) Glucose 117 H (65-110) mg/dL Calcium 8.7 (8.4-10.2) mg/dL Total Bilirubin 0.5 (0.2-1.3) mg/dL AST 22 (17-59) U/L ALT 26 (6-50) U/L Alkaline Phosphatase 75 (38-126) U/L Troponin I 0.017 < 0.012 D (0.000-0.034) ng/mL NT-Pro-B Natriuret Pep 63 (19.9-100) pg/mL Total Protein 7.0 (6.3-8.2) g/dL Albumin 4.1 (3.5-5.1) g/dL Discharge Plan Discharge Clinical Impression: Bilateral lower extremity edema Patient Disposition: Home, Self-Care Condition: Stable Instructions: Antibiotic Form, Edema (ED) Additional Instructions: Please follow-up with your primary care provider as you may need additional testing as an outpatient please keep a daily log of your blood pressure Patient Language: Latvian Prescriptions: New furosemide [Lasix] 20 mg tablet 20 mg PO DAILY 7 Days Qty: 7 0RF No Action atorvastatin 10 mg tablet 10 mg PO DAILY Qty: 90 0RF Zepbound 2.5 mg/0.5 mL pen injector 2.5 mg subcut WEEKLY Qty: 2 0RF Rx Instructions: for 4 weeks Follow-up/Referrals: Alicia Dykes APRN [Primary Care Provider] - Time of Disposition: 05:34
[2024-06-13 05:15] LABS: Troponin I < 0.012 ng/mL (0.000-0.034)
[2024-06-13 05:49] VITALS: BP 169/90; PULSE 84; RESP 18; O2SAT 94
== END 2024-06-13 05:49 | disposition home or self-care (01) ==
PROVIDERS: Emergency Provider Emergency Medicine; PCP Nurse Practitioner Family
DX: R60.9 Edema, unspecified (principal); I10 Essential (primary) hypertension; F17.200 Nicotine dependence, unspecified, uncomplicated
CPT/HCPCS: 36415; 71046; 80053; 83880; 84484; 85025; 85610; 85730; 93005; 99284